=== PATIENT | female | born 1965 | race Caucasian/White ===

== ENCOUNTER 2019-12-10 07:48 | Outpatient (CLI) | payer BC, SELFPAY ==
--- NOTE | 2019-12-10 07:56 | XR_ITS ---
WS: [id number] ABDOMEN 1 VIEW(S) HISTORY: KIDNEY STONE COMPARISON: 12/09/2017 Normal bowel gas pattern. Numerous calcifications LEFT upper quadrant from splenic granulomata. Tiny calcifications project ove r each kidney. No ureteral calcifications. No bone abnormality. XR/XR KUB [id number] IMPRESSION: 1. Tiny calcifications over each kidney. Corresponds to nephrolithiasis seen o n a prior CT of 12/08/2017. 2. Splenic granulomata. 3. No ureteral calcifications.
== END 2019-12-10 07:49 | disposition home or self-care (01) ==
LOC: RAD 07:50
PROVIDERS: Visit Provider Nurse Practitioner Family
DX: N20.0 Calculus of kidney (principal); N30.80 Other cystitis without hematuria; N20.9 Urinary calculus, unspecified
CPT/HCPCS: 74018; 80053; 81001; 87077; 87086; 87186

== ENCOUNTER → 2020-02-17 08:51 | Outpatient (BNVA) | payer BC, SELFPAY | PROVIDERS: PCP Family Medicine; Visit Provider Urology | DX: N30.80 Other cystitis without hematuria (principal) | CPT/HCPCS: 81001 ==

== ENCOUNTER → 2020-08-16 15:37 | Outpatient (BNVA) | payer BC, SELFPAY | PROVIDERS: PCP Family Medicine; Visit Provider Nurse Practitioner Family | DX: N30.80 Other cystitis without hematuria (principal); N20.9 Urinary calculus, unspecified | CPT/HCPCS: 81003 ==

== ENCOUNTER 2021-02-14 14:03 | Outpatient (CLI) | payer BC, SELFPAY ==
--- NOTE | 2021-02-14 14:00 | XR_ITS ---
WS: [id number] KUB, AP view, 02/14/2021 Clinical Data: UROLITHIASIS Comparison: KUB, 12/10/2019. Findings: No abnormal intraabdominal masses are seen. There is no dilatated small bowel or evidence of obstruct ion. There are calcifications overlying both kidneys. There are splenic granulomas noted. There are clips in the right upper quadrant from a cholecystectomy. XR/XR KUB [id number] Impression: Bilateral renal calcifications.
== END 2021-02-14 14:04 | disposition home or self-care (01) ==
LOC: RAD 14:06
PROVIDERS: PCP Family Medicine; Visit Provider Urology
DX: N20.0 Calculus of kidney (principal)
CPT/HCPCS: 74018; 81003

== ENCOUNTER 2022-05-28 15:23 | Outpatient (CLI) | payer BC, SELFPAY ==
--- NOTE | 2022-05-28 15:45 | XR_ITS ---
WS: [id number] KUB, AP view, 05/28/2022 Clinical Data: UROLITHIASIS Comparison: KUB, 02/14/2021 Findings: There are calcifications overlying both kidneys. No abnormal intraabdominal masses are seen. There is no dilatated small bowel or evidence of obstruct ion. Splenic granulomas are seen. There are clips in the right upper quadrant from a cholecystectomy. XR/XR KUB [id number] Impression: No change in bilateral renal calcifications.
== END 2022-05-28 15:24 | disposition home or self-care (01) ==
LOC: RAD 15:27
PROVIDERS: PCP Family Medicine; Visit Provider Urology
DX: N20.9 Urinary calculus, unspecified (principal)
CPT/HCPCS: 74018; 81003

== ENCOUNTER → 2022-12-19 14:20 | Outpatient (BNVA) | payer BC, SELFPAY | PROVIDERS: PCP Family Medicine; Visit Provider Nurse Practitioner | DX: S99.922A Unspecified injury of left foot, initial encounter (principal); X58.XXXA Exposure to other specified factors, initial encounter | CPT/HCPCS: 73630 ==

== ENCOUNTER → 2023-09-23 17:09 | Outpatient (BNVA) | payer BC, SELFPAY | PROVIDERS: PCP Family Medicine; Visit Provider Family Medicine | DX: R39.9 Unspecified symptoms and signs involving the genitourinary system (principal) | CPT/HCPCS: 81000; 87077; 87086; 87184 ==

== ENCOUNTER 2023-10-15 09:08 | Outpatient (CLI) | payer BC, SELFPAY ==
--- NOTE | 2023-10-15 09:51 | MR_ITS ---
WS: [id number] MRI ABDOMEN WITH AND WITHOUT CONTRAST. COMPARISON: Prior CT 09/26/2023 from [facility]. Multiplanar, multisequence imaging is performed with and without contrast. MultiHance 20 mL IV. LEFT kidney: Normal size LEFT kidney. Enhancing solid well-circumscribed mass in the superior medial kidney measures 3.1 x 3.9 x 3.0 cm. This mass does enhance consistent with a solid renal neoplasm. Th ere are few very tiny cortical cysts in the upper and mid kidney. No additional masses or abnormal en hancement. There is no obstruction of the kidney. As per history patient has an existing LEFT uretera l stent in place. Mild periureteral stranding. RIGHT kidney: Normal size kidney. Simple cyst superior medial kidney measures 2.3 x 2.5 x 2.2 cm There is a smaller cyst which also does not enhance in the upper pole. No obstruction of the kidney. Pancreas: Normal size pancreas. No pancreatic head mass. No duct dilatation. Normal common bile duct. There is a very tiny nonenhancing 5 mm area of low signal intensity in the mid body of the pancreas. This does not enhance and is probably representing IPMN but due to its very small size difficult to characterize further. No ascites. The visualized liver is normal. Prior cholecystectomy. No bile duct dilatation. No ascite s. IMPRESSION: 1. Solid mass superior medial pole LEFT kidney measures 3.1 x 3.9 x 3.0 cm. Consistent with a renal cell neoplasm until proven otherwise. 2. Simple cyst RIGHT kidney. 3. Pancreatic body 5 mm nonenhancing mass. Probably representing an IPMN. Really too small to charac terize completely. Consider follow-up MRI abdomen with and without contrast, 6 to 12 months. Long-ter m imaging necessary to document stability. 4. Prior cholecystectomy.
[2023-10-15] MEDS: gadobenate dimeglumine 20 mL vial IV (11:21)
== END 2023-10-15 09:09 | disposition home or self-care (01) ==
LOC: RAD 09:09
PROVIDERS: PCP Family Medicine; Visit Provider Nurse Practitioner Family
DX: N28.89 Other specified disorders of kidney and ureter (principal); K86.9 Disease of pancreas, unspecified; N28.1 Cyst of kidney, acquired; Z90.49 Acquired absence of other specified parts of digestive tract
CPT/HCPCS: 74183; A9577

== ENCOUNTER 2023-10-17 16:58 | Outpatient (CLI) | payer BC, SELFPAY ==
[2023-10-17] MEDS: iohexol 350 mg/mL 500 mL Btl (per mL) IV (17:12)
--- NOTE | 2023-10-17 17:30 | CT_ITS ---
WS: [id number] CT CHEST TECHNIQUE: Contrast enhanced CT of the chest with coronal and sagittal reformatted images. CLINICAL INFORMATION: renal cell cancer COMPARISON: CT abdomen pelvis 09/26/2023 and MRI 10/15/2023 DLP: 516.[address] scans at [facility] use at least one of these dose optimization techniques: automated e xposure control; mA and/or kV adjustment per patient size (includes targeted exams where dose is matc hed to clinical indication); or iterative reconstruction. FINDINGS: Normal caliber thoracic aorta. Proximal main pulmonary arteries are normal. No axillary lymphadenopat hy. No mediastinal or hilar lymphadenopathy. Calcified RIGHT hilar and subcarinal lymph nodes. Shallo w inspiration. Lungs are well aerated. Slight bibasilar atelectasis. No suspicious pulmonary parenchy mal abnormalities. Partially visualized renal cell neoplasm upper pole LEFT kidney as seen on the recent MRI. Hepatomega ly diffuse fatty infiltration of the liver. Normal portal vein and splenic vein. Cholecystectomy clip s. Splenic granulomas. Splenomegaly. Small low-attenuation pancreatic lesion described on the recent MRI . Adrenal glands are normal. IMPRESSION: 1. No evidence of metastatic disease in the chest. 2. No suspicious pulmonary parenchymal abnormalities. 3. No mediastinal or hilar lymphadenopathy. 4. Partially visualized LEFT renal neoplasm described on the recent MRI.
== END 2023-10-17 16:59 | disposition home or self-care (01) ==
LOC: RAD 16:58
PROVIDERS: PCP Family Medicine; Visit Provider Internal Medicine Medical Oncology
DX: C64.2 Malignant neoplasm of left kidney, except renal pelvis (principal)
CPT/HCPCS: 71260; Q9967

== ENCOUNTER 2023-10-28 16:17 | Outpatient (CLI) | payer BC, SELFPAY ==
--- NOTE | 2023-10-28 16:24 | XR_ITS ---
WS: [id number] Examination: XR chest 2V* [id number] Reason for Exam: COUGH Date: October 28, 2023 Comparison: June 29, 2020 Findings: There is dominant left basilar atelectasis or infiltrate. Minimal atelectasis on the right is identif ied. There is no failure The heart is nonenlarged. The mediastinum is not widened There is been a cholecystectomy. A left ureteral stent is identified Impression: There is dominant left lower lobe atelectasis/infiltrate.
[2023-10-28 18:23] LABS: Adenovirus Not Detected (NOT DETECT); Chlamydia Pneumoniae Not Detected (NOT DETECT); Coronavirus 229E,HKU1,NL63,OC4 Not Detected (NOT DETECT); Human Metapneumovirus Not Detected (NOT DETECT); Human Rhinovirus/Enterovirus Not Detected (NOT DETECT); Influenza A Not Detected (NOT DETECT); Influenza A H1 Not Detected (NOT DETECT); Influenza A H1-2009 Not Detected (NOT DETECT); Influenza A H3 Not Detected (NOT DETECT); Influenza B Not Detected (NOT DETECT); Mycoplasma Pneumoniae Not Detected (NOT DETECT); Parainfluenza Virus Type 1 Not Detected (NOT DETECT); Parainfluenza Virus Type 2 Not Detected (NOT DETECT); Parainfluenza Virus Type 3 Not Detected (NOT DETECT); Parainfluenza Virus Type 4 Not Detected (NOT DETECT); Respiratory Syncytial Virus A Not Detected (NOT DETECT); Respiratory Syncytial Virus B Not Detected (NOT DETECT); SARS-COV-2 Not Detected (NOT DETECT)
== END 2023-10-28 16:18 | disposition home or self-care (01) ==
LOC: LAB 16:19
PROVIDERS: Internal Medicine; PCP Family Medicine; Visit Provider Pediatrics
DX: R05.9 Cough, unspecified (principal); R50.9 Fever, unspecified
CPT/HCPCS: 71046; 87486; 87581; 87633

== ENCOUNTER 2023-10-29 13:25 | Oncology outpatient (recurring) (ONCR) | payer BC, SELFPAY ==
--- NOTE | 2023-10-29 13:33 | CT_ITS ---
WS: [id number] CT ABDOMEN PELVIS TECHNIQUE: Noncontrast CT of the abdomen and pelvis with coronal and sagittal reformatted images. CLINICAL INFORMATION: HEMATURIA, HX OF PARTIAL NEPHRECTOMY COMPARISON: CT 09/26/2023 DLP: 859.[address] scans at [facility] use at least one of these dose optimization techniques: automated e xposure control; mA and/or kV adjustment per patient size (includes targeted exams where dose is matc hed to clinical indication); or iterative reconstruction. FINDINGS: Small LEFT and tiny RIGHT pleural effusions. Compressive atelectasis in the lung bases LEFT greater t malik RIGHT. Subsegmental atelectasis in the lingula. This is new from 09/26/2023 Recent postoperative changes LEFT partial nephrectomy with resection of the previously described enha ncing LEFT renal mass. Double-J ureteral stent appears in good position. No significant hydronephrosi s. Inflammatory stranding and edema about the LEFT kidney and renal pelvis. Additional more recent ap pearing blood products about the LEFT kidney. Small amount of retroperitoneal inflammatory stranding and edema. No large drainable hematoma. Mild hepatomegaly. Prior cholecystectomy. Splenic granulomas. Normal GE junction. Previously describe d 11 mm low-attenuation lesion in the pancreas appears stable. Contrast not administered today. Roberta l adrenal glands. Parenchymal scarring RIGHT kidney with stable RIGHT renal cyst. Nonobstructing danial ceal calculi bilaterally. Normal caliber abdominal aorta. Small amount of free fluid in the pelvis. Normal appendix in the RIGH T lower quadrant. Fat-containing umbilical hernia. IMPRESSION: 1. Small LEFT greater than RIGHT pleural effusions with bibasilar atelectasis new from previous. Sub segmental atelectasis in the lingula. Recommend correlation for pneumonia. 2. Recent postoperative changes partial LEFT nephrectomy. Inflammatory stranding and edema with some more recent appearing blood products about the LEFT kidney. Recommend correlation for hematuria and infection. No large drainable hematoma. Recommend short interval follow-up CT to ensure stability or improvement and follow-up with urology. 3. Double-J ureteral stent appears in place. No hydronephrosis. 4. No other acute findings. Discussed with Marge Brooks at 10/29/2023 2:37 PM.
== END 2023-11-26 23:59 | disposition home or self-care (01) ==
LOC: RAD 13:26 → ONCMED 11-22 10:09
PROVIDERS: PCP Family Medicine; Visit Provider Nurse Practitioner Family
DX: R31.9 Hematuria, unspecified (principal); Z90.5 Acquired absence of kidney; Z96.0 Presence of urogenital implants; J90 Pleural effusion, not elsewhere classified; J98.11 Atelectasis
CPT/HCPCS: 74176

== ENCOUNTER 2023-12-24 09:02 | Oncology outpatient (recurring) (ONCR) | payer BC, SELFPAY | END 2023-12-27 23:59 | disposition home or self-care (01) | LOC: ONCMED 09:02 | PROVIDERS: PCP Family Medicine; Visit Provider Nurse Practitioner Family | DX: R31.9 Hematuria, unspecified (principal); Z90.5 Acquired absence of kidney; Z96.0 Presence of urogenital implants; J90 Pleural effusion, not elsewhere classified; J98.11 Atelectasis; Z53.9 Procedure and treatment not carried out, unspecified reason; C64.2 Malignant neoplasm of left kidney, except renal pelvis; D49.0 Neoplasm of unspecified behavior of digestive system ==

== ENCOUNTER 2024-09-11 08:23 | Oncology outpatient (recurring) (ONCR) | payer BC, SELFPAY ==
[2024-09-11 09:20] LABS: Basophils % 0.3 %; Eosinophils # 0.2 10^3/uL (0.0-0.8); Eosinophils % 2.7 %; Hematocrit 42.3 % (36-47); Lymphocytes # 1.5 10^3/uL (0.8-4.8); Lymphocytes % 24.5 %; Mean Corpuscular HGB Conc 34.5 g/dL (30-55); Mean Corpuscular Hemoglobin 29.6 pg (27-33); Mean Corpuscular Volume 85.8 fl (85-98); Mean Platelet Volume 10.7 fL (7.4-10.4); Monocytes # 0.5 10^3/uL (0.2-0.9); Monocytes % 7.9 %; Neutrophils # 4.01 10^3/uL (1.8-7.7); Neutrophils % 64.3 %; Nucleated Red Blood Cells % 0 %; Platelet Count 165 10^3/cmm (157-399); Red Blood Count 4.93 10^6/uL (3.85-5.65); Red Cell Distribution Width 13.6 % (12.1-15.1); White Blood Count 6.24 10^3/uL (3.29-11.43)
[2024-09-11 09:40] LABS: Alanine Aminotransferase 38 U/L (0-33); Albumin Level 3.8 g/dL (3.5-5.2); Alkaline Phosphatase 89 U/L (35-105); Aspartate Amino Transferase 39 U/L (0-32); Blood Urea Nitrogen 13 mg/dL (6-20); Calcium 9.2 mg/dL (8.5-10.5); Carbon Dioxide 22 mmol/L (22-29); Chloride 104 mmol/L (98-107); Creatinine Clr Calc Pharmacy 117.8246; Globulin 3.7 g/dL (1.3-4.6); Glomerular Filtration Rate 102.7 mL/min (90-130); Glucose 241 mg/dL (65-115); Osmolality Calculated 296 mOsm/kg (285-295); Sodium 139 mmol/L (136-145); Total Bilirubin 0.7 mg/dL (0.15-1.2); Total Protein 7.5 g/dL (6.6-8.7)
[2024-09-11 09:42] LABS: Lactate Dehydrogenase 199 U/L (135-214)
[2024-09-11 11:41] LABS: Estmated Average Glucose 183
== END 2024-09-25 23:59 | disposition home or self-care (01) ==
PROVIDERS: Nurse Practitioner Family; PCP Family Medicine; Visit Provider Nurse Practitioner Family
DX: C64.2 Malignant neoplasm of left kidney, except renal pelvis (principal)
CPT/HCPCS: 36415; 80053; 83036; 83615; 85025

== ENCOUNTER 2025-02-19 08:01 | Oncology outpatient (recurring) (ONCR) | payer BC, SELFPAY ==
[2025-02-19 08:22] LABS: Hematocrit 38.6 % (36-47); Hemoglobin 13.00 g/dL (11.27-16.99); Mean Corpuscular HGB Conc 33.7 g/dL (30-55); Mean Corpuscular Hemoglobin 29.2 pg (27-33); Mean Corpuscular Volume 86.7 fl (85-98); Nucleated Red Blood Cells % 0 %; Platelet Count 178 10^3/cmm (157-399); Red Blood Count 4.45 10^6/uL (3.85-5.65); White Blood Count 5.88 10^3/uL (3.29-11.43)
[2025-02-19 08:39] LABS: Alanine Aminotransferase 9 U/L (0-33); Albumin Level 3.9 g/dL (3.5-5.2); Alkaline Phosphatase 52 U/L (35-105); Anion Gap 17.1 (5-19); Aspartate Amino Transferase 12 U/L (0-32); Blood Urea Nitrogen 12 mg/dL (6-20); Calcium 9.5 mg/dL (8.5-10.5); Carbon Dioxide 22 mmol/L (22-29); Chloride 106 mmol/L (98-107); Globulin 3.1 g/dL (1.3-4.6); Glucose 103 mg/dL (65-115); Osmolality Calculated 292 mOsm/kg (285-295); Potassium 4.1 mmol/L (3.5-5.1); Sodium 141 mmol/L (136-145); Total Protein 7.0 g/dL (6.6-8.7)
== END 2025-02-25 23:59 | disposition home or self-care (01) ==
PROVIDERS: Nurse Practitioner Family; PCP Family Medicine; Visit Provider Nurse Practitioner Family
DX: C64.2 Malignant neoplasm of left kidney, except renal pelvis (principal)
CPT/HCPCS: 36415; 80053; 85025